=== PATIENT | male | born 1985 | race American Indian/Alaskan Native ===

== ENCOUNTER 2017-02-08 20:49 | Emergency (ER) | payer SELFPAY ==
[2017-02-09] MEDS ORDERED: TRIPLE ANTIBIOTIC TP ONE (00:39)
[2017-02-09] MEDS ORDERED: BOOSTRIX IM ONE (00:39)
[2017-02-09] MEDS ORDERED: MOTRIN PO ONE (00:40)
[2017-02-09] MEDS ORDERED: XYLOCAINE 2%/EPI 1:100,000 INFILTRATI ONE (00:43)
--- NOTE | 2017-02-09 00:43 | Emergency Department Report ---
ED Laceration HPI - [facility] Chief Complaint: Wound/Laceration Stated Complaint: RIGHT WRIST LAC Time Seen by Provider: 02/09/17 00:38 Tetanus Status: Not up to Date Laceration Symptoms: Yes Pain, No Foreign Body Sensation, No Numbness, No Weakness Other History: 31-year-old male presents with complaint of right wrist laceration which occurred at work last night. Patient was handling a piece of sheet metal which slipped and cut open the ulnar aspect of his right wrist. he states it bled and then stopped. Patient has visible ~3cm diagonal laceration to right ulnar wrist. is here with a family member/coworker. Patient states he does not know when he last received tetanus it may have been over 5 years ago ED Review of Systems ROS: Stated complaint: RIGHT WRIST LAC Other details as noted in HPI ED Past Medical Hx - Past Medical History Previous Medical History?: No - Surgical History Past Surgical History?: No - Social History Smoking Status: Never Smoker Substance Use Type: Alcohol - Medications Home Medications: Home Medications Medication Instructions Recorded Confirmed Last Taken Type Bacitracin/Polymixin B [Polysporin] 1 applicatio TP BID #1 tube 02/09/17 Unknown Rx Cephalexin [Keflex] 500 mg PO Q12HR #14 cap 02/09/17 Unknown Rx Ibuprofen [Motrin] 600 mg PO Q8H PRN #20 tablet 02/09/17 Unknown Rx Laceration Physical Exam - Exam General: Vital signs noted. No distress. Alert and acting appropriately. Wound Length (cm): 3 Laceration Location: Upper Extremity (right wrist) Full Body Front + Back: 1 - Diagonal 2-3 cm laceration ulnar aspect right wrist Laceration Exam: Yes Normal Distal CMS (distal radial pulse strong and intact to palpation, capillary refill less than one second in all fingers, distal sensation all fingers fully intact), No Foreign Body, No Exposed Tendon, Vessel , or Nerve, No Tendon Injury ED Course Vital Signs 02/08/17 21:09 Temperature 97.9 F Pulse Rate 73 Respiratory 20 Rate Blood Pressure 122/82 O2 Sat by Pulse 98 Oximetry - Laceration /Wound Repair Right Lateral Distal Volar Wrist Wound Location: upper extremity (right distal ulnar volar wrist region) Wound Length (cm): 3 Wound's Depth, Shape: linear Irrigated w/ Saline (ccs): 500 Betadine Prep?: Yes Anesthesia: Lidocaine w/ Epi Volume Anesthetic (ccs): 4 Wound Debrided: minimal Wound Repaired With: sutures Suture Size/Type: 4:0, proline Number of Sutures: 4 Sterile Dressing Applied?: Yes (antibiotic ointment with 2 x 2 gauze and Kerlix wrap) Progress: Procedure tolerated well minimal bleeding good approximation achieved ED Medical Decision Making - Medical Decision Making A/P: Right wrist Laceration 1-sutures to be removed in 7-10 days 2-tetanus updated 3-Motrin when necessary, triple antibiotic ointment, short course Keflex 4- pt advised to return to the ED for any fevers chills pus drainage erythema at site of laceration Critical care attestation.: If time is entered above; I have spent that time in minutes in the direct care of this critically ill patient, excluding procedure time. ED Disposition Clinical Impression: Laceration Disposition: TO HOME OR SELFCARE Is pt being admited?: No Does the pt Need Aspirin: No Condition: Stable Instructions: Suture Care (ED), Laceration (ED) Additional Instructions: Sutures to be removed in 7-10 days. Patient can return to the ED for suture removal Prescriptions: Bacitracin/Polymixin B [Polysporin] 1 applicatio TP BID #1 tube Cephalexin [Keflex] 500 mg PO Q12HR #14 cap Ibuprofen [Motrin] 600 mg PO Q8H PRN #20 tablet PRN Reason: Pain Referrals: [facility] [place] [Outside] - 3-5 Days [facility] [Outside] - 3-5 Days Forms: Accompanied Note, Work/School Release Form(ED) Time of Disposition: 01:32 Print Language: GERMAN
[2017-02-09 01:48] VITALS: BP 131/86
== END 2017-02-09 01:45 | disposition home or self-care (01) ==
LOC: ED 20:49
DX: S61.511A Laceration without foreign body of right wrist, initial encounter (principal); W45.8XXA Other foreign body or object entering through skin, initial encounter; Y93.9 Activity, unspecified; Y92.9 Unspecified place or not applicable; Y99.9 Unspecified external cause status
CPT/HCPCS: 90471; 90715; A6250